=== PATIENT | female | born 1985 | race Caucasian/White ===

== ENCOUNTER 2020-08-28 13:05 | Emergency (ER) | payer OTHER ==
[~2020-08-28] VITALS: Ht 157.5 cm; Wt 73.9 kg
[2020-08-28 13:31] VITALS: BP 85/49
--- NOTE | 2020-08-28 13:39 | NUR ---
PATIENT TO THE BATHROOM FOR URINE COLLECTION
--- NOTE | 2020-08-28 13:41 | NUR ---
PATIENT TO LOBBY
--- NOTE | 2020-08-28 14:20 | NUR ---
Ambulated to bed 9
--- NOTE | 2020-08-28 14:25 | NUR ---
34/F presents to ED with c/o epigastric pain. Patient states she has had intermittent epigastric pain for the last 2-3 days worsening today. Patient states the pain is radiating to her back and right lower quadrant. Patient denies taking anything at home, denies chest pain or shortness of breath. Patient states she had some nausea since this morning, denies vomiting or diarrhea, denies dysuria or hematuria.
[2020-08-28] MEDS ORDERED: NACL 0.9% 1,000 ML IV ONE (14:45)
[2020-08-28] MEDS ORDERED: KETOROLAC 30 MG/ML VIAL IVP ONE (14:45)
[2020-08-28] MEDS ORDERED: cefTRIAXone 1,000 MG VIAL ONE (14:58)
[2020-08-28] MEDS ORDERED: IBUP-1842 PO (15:06)
[2020-08-28] MEDS ORDERED: CEPH-588 PO (15:06)
--- NOTE | 2020-08-28 15:44 | NUR ---
Patient discharged with v/s stable. Written and verbal after care instructions given and explained. Patient alert, oriented and verbalized understanding of instructions. Ambulatory with steady gait. All questions addressed prior to discharge. ID band removed. Patient advised to follow up with PMD. Rx of Keflex and Motrin given. Patient educated on indication of medication including possible reaction and side effects. Opportunity to ask questions provided and answered.
[2020-08-28 15:45] VITALS: BP 130/73
== END 2020-08-28 15:44 | disposition home or self-care (01) ==
LOC: MED 13:05
DX: N12 Tubulo-interstitial nephritis, not specified as acute or chronic (principal); Z79.899 Other long term (current) drug therapy; Z98.890 Other specified postprocedural states; Z90.710 Acquired absence of both cervix and uterus
CPT/HCPCS: 81002; 81025; 96361; 96365; 96375; 99284; J0696; J1885; J7030